=== PATIENT | male | born 1990 | race Two or more races ===

== ENCOUNTER 2021-03-19 12:50 | Emergency (ER) | payer OTHER ==
[~2021-03-19] VITALS: Ht 177.8 cm; Wt 72.6 kg
--- NOTE | 2021-03-19 13:17 | NUR ---
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
--- NOTE | 2021-03-19 15:12 | NUR ---
DR GARCIA TALKED TO PT/PROFESSOR OF [employer] AT BEDSIDE D/C IN [employer] CUSTODY AFTER CARE REVIEWED UNDERSTOOD LEFT ER AMBULATORY WITH STEADY GAIT, SLING IN PLACE TO RIGHT ARM/SHOULDER.
[2021-03-19 15:14] VITALS: BP 130/70
== END 2021-03-19 15:15 | disposition home or self-care (01) ==
LOC: ER 12:53
DX: S43.084A Other dislocation of right shoulder joint, initial encounter (principal); F17.200 Nicotine dependence, unspecified, uncomplicated; Y08.89XA Assault by other specified means, initial encounter; Y93.89 Activity, other specified; Y92.89 Other specified places as the place of occurrence of the external cause; Y99.8 Other external cause status
CPT/HCPCS: 73030-TC